=== PATIENT | female | born 1985 | race Caucasian/White ===

== ENCOUNTER 2016-09-02 17:22 | Emergency (ER) | payer BC ==
[~2016-09-02] VITALS: Wt 71.0 kg
[~2016-09-02 17:22] MED LIST: ACET500C5 PO; CETI10CA PO; CYCL-319 PO; DICY20TA59 PO; HYDR-906 PO; IBUP400T22 PO; NAPR-260 PO; NITR-58 PO; ONDA4TAB14 PO; UDROBDM PO
[2016-09-02] MEDS ORDERED: ONDANSETRON 4 MG INJ IV STA (17:45)
[2016-09-02] MEDS ORDERED: SOD CHLORIDE 0.9% 1,000 ML IV STA (17:45)
[2016-09-02 18:17] LABS: BASOPHIL # 0.1 10^3/ul (0.0-0.1); BASOPHILS % 0.6 % (0.0-2.0); EOSINOPHILS # 0.2 10^3/ul (0.0-0.5); EOSINOPHILS % 1.8 % (0.0-7.0); HEMOGLOBIN 13.8 g/dl (12.0-16.0); LYMPHOCYTES # 2.2 10^3/ul (0.8-2.9); LYMPHOCYTES % 21.3 % (15.0-51.0); MEAN CORPUSCULAR HEMOGLOBIN 28.9 pg (29.0-33.0); MEAN CORPUSCULAR HGB CONC 34.5 g/dl (32.0-37.0); MEAN CORPUSCULAR VOLUME 83.9 fl (82.0-101.0); MEAN PLATELET VOLUME 11.5 fl (7.4-10.4); MONOCYTE # 0.8 10^3/ul (0.3-0.9); MONOCYTES % 7.4 % (0.0-11.0); NEUTROPHILS % 68.5 % (39.0-77.0); PLATELET COUNT 186 10^3/UL (140-415); RED BLOOD COUNT 4.77 10^6/ul (4.20-5.40); RED CELL DISTRIBUTION WIDTH 13.6 % (11.5-14.5); WHITE BLOOD COUNT 10.2 10^3/ul (4.8-10.8)
[2016-09-02 18:37] LABS: ADD UMIC YES; UR ASCORBIC ACID 20 mg/dL (NEGATIVE); UR BACTERIA FEW /HPF (NONE SEEN); UR BILIRUBIN (Dip) NEGATIVE (NEGATIVE); UR BLOOD (Dip) NEGATIVE (NEGATIVE); UR CLARITY CLOUDY (CLEAR); UR COLOR YELLOW (YELLOW); UR GLUCOSE (Dip) NEGATIVE (NEGATIVE); UR KETONES (Dip) NEGATIVE (NEGATIVE); UR LEUKOCYTE ESTERASE (Dip) 3+ Leu/ul (NEGATIVE); UR MUCUS FEW /HPF (NONE SEEN); UR NITRITE (Dip) NEGATIVE (NEGATIVE); UR RBC 1 /HPF (0-5); UR SPECIFIC GRAVITY (Dip) 1.017 (1.003-1.030); UR SQUAMOUS EPITHELIAL CELL FEW /HPF (FEW); UR TOTAL PROTEIN (Dip) NEGATIVE (NEGATIVE); UR UROBILINOGEN (Dip) NEGATIVE (NEGATIVE)
[2016-09-02 18:38] LABS: ALBUMIN 4.2 g/dl (3.3-4.9); ALBUMIN/GLOBULIN RATIO 1.27; BILIRUBIN,INDIRECT 0.2 mg/dl (0-1.1); BILIRUBIN,TOTAL 0.2 mg/dl (0.2-1.3); CREATININE 0.66 mg/dl (0.44-1.00); TOTAL PROTEIN 7.5 g/dl (6.1-8.1)
--- NOTE | 2016-09-02 18:43 | RADRPT ---
PROCEDURE: US OB. CLINICAL INDICATION: Pelvic pain TECHNIQUE: Transabdominal and endovaginal views of the pelvis are available for review. COMPARISON: No prior studies are available for comparison. FINDINGS: There is a single intrauterine gestation with the crown-rump length measuring 1.3 cm, corresponding to a gestational age of 7 weeks and 4 days. The heart rate is noted at 142 bpm. The right ovary measures 3.8 x 2.7 x 2.8 cm. There is a 2.4 cm simple cyst in the right ovary. Ther e is Doppler flow in the right ovary. The left ovary was not visualized. There is no free fluid. RPTAT: AA IMPRESSION: Single live intrauterine with an estimated gestational age of 7 weeks and 4 days, based on ultrasound measurements. CITLALLI based on ultrasound measurements is 04/17/2017. Left ovary not visualized. .Blaise Crews MD, Date Time Electronically viewed and signed by .Blaise Crews MD, on 09/02/2016 18:43 .S/
[2016-09-02] MEDS ORDERED: NITROFURANTOIN (SR) 100 MG CAP PO ONE (19:00)
[2016-09-02] MEDS ORDERED: NITR-58 PO (19:08)
[2016-09-02] MEDS ORDERED: ONDA4TAB14 PO (19:08)
[2016-09-02] MEDS ORDERED: PRENAT PO (19:12)
[2016-09-02 19:36] VITALS: BP 109/67; PULSE 53; RESP 14; TEMP 97.7
--- NOTE | 2016-09-09 14:22 | ERD ---
ER Documentation Chief Complaint Date/Time DATE: 09/09/16 TIME: 14:20 Chief Complaint NAUSEA AND VOMITING 6 WEEKS HPI Patient is a 31-year-old female who is who presents with nausea and vomiting. She has had nausea and vomiting for the past few days. She has not had any treatment as of yet. She is . She has had no abdominal pain or vaginal bleeding. She has no fevers. ROS All systems reviewed and are negative except as per history of present illness. Medications Home Meds Active Scripts Multivit/Min/Fol Ac/Iron/Pren* ( S*) 1 Tab Tab, 1 TAB PO DAILY, #30 TAB Prov:IVÁN MARQUES MD 09/02/16 Ondansetron (Ondansetron Odt) 4 Mg Tab.rapdis, 4 MG PO Q6H Y for NAUSEA AND/OR VOMITING, #30 TAB Prov:IVÁN MARQUES MD 09/02/16 Nitrofurantoin Monohyd Macrocr* (Macrobid*) 100 Mg Capsr, 100 MG PO BID for 14 Days, CAP Prov:IVÁN MARQUES MD 09/02/16 Cetirizine Hcl* (Zyrtec*) 10 Mg Capsule, 10 MG PO DAILY, #10 TAB.CHEW Prov:JESSIKA ECHEVERRIA PA-C 02/05/16 Guaifenesin-Dextromethorphan* (Robitussin* DM) 100MG/10MG/5ML Syrup, 10 ML PO Q4H Y for COUGH for 5 Days, ML Prov:JESSIKA ECHEVERRIA PA-C 02/05/16 Acetaminophen* (Tylophen*) 500 Mg Capsule, 1 CAP PO Q6H Y for PAIN AND OR ELEVATED TEMP, #30 CAP Prov:JESSIKA ECHEVERRIA PA-C 02/05/16 Naproxen* (Naprosyn*) 500 Mg Tablet, 500 MG PO BID Y for PAIN AND/OR INFLAMMATION, #30 TAB Prov:JESSIKA ECHEVERRIA PA-C 02/05/16 Ondansetron (Ondansetron Odt) 4 Mg Tab.rapdis, 4 MG PO Q8 Y for NAUSEA AND/OR VOMITING, #30 TAB Prov:MARIANNE STEVENS NP 01/14/16 Dicyclomine Hcl* (Bentyl*) 20 Mg Tablet, 20 MG PO QID, #20 TAB Prov:MARIANNE STEVENS SPARK PLUG TESTER 01/14/16 Hydrocodone/Acetaminophen ([place] 5-325 Tablet) 1 Each Tablet, 1 TAB PO Q6H Y for SEVERE PAIN LEVEL 7-10, #20 TAB Prov:MARIANNE STEVENS SPARK PLUG TESTER 01/14/16 Ibuprofen* (Motrin*) 400 Mg Tab, 400 MG PO Q6H Y for PAIN AND OR ELEVATED TEMP, #30 TAB Prov:MARIANNE STEVENS. SPARK PLUG TESTER 11/08/15 Cyclobenzaprine Hcl* (Cyclobenzaprine Hcl*) 10 Mg Tablet, 10 MG PO TID, #15 TAB Prov:MARIANNE STEVENS SPARK PLUG TESTER 11/08/15 Hydrocodone/Acetaminophen ([place] 5-325 Tablet) 1 Each Tablet, 1 TAB PO Q6H Y for PAIN, #20 TAB Prov:MARIANNE STEVENS NP 11/08/15 Naproxen* (Naprosyn*) 500 Mg Tablet, 500 MG PO BID Y for PAIN AND/OR INFLAMMATION, #30 TAB Prov:CHANTEL URBINA PA-C 09/23/15 Acetaminophen* (Tylophen*) 500 Mg Capsule, 1 CAP PO Q6H Y for PAIN AND OR ELEVATED TEMP, #20 CAP Prov:PHILIP ALLEN NP 09/08/14 Nitrofurantoin Monohyd Macrocr* (Macrobid*) 100 Mg Capsr, 100 MG PO BID for 7 Days, CAP Prov:PHILIP ALLEN SPARK PLUG TESTER 09/08/14 Allergies Allergies: Coded Allergies: No Known Allergy (Unverified , 05/11/14) PMhx/Soc Medical and Surgical Hx: pt denies Medical Hx History of Surgery: No Anesthesia Reaction: No Hx Neurological Disorder: No Hx Respiratory Disorders: No Hx Cardiac Disorders: No Hx Psychiatric Problems: No Hx Miscellaneous Medical Probl: No Hx Alcohol Use: No Hx Substance Use: No Hx Tobacco Use: No Smoking Status: Never smoker FmHx Family History: No diabetes Physical Exam Physical Exam Const: No acute distress Head: Atraumatic Eyes: Normal Conjunctiva ENT: Normal External Ears, Nose and Mouth. Neck: Full range of motion..~ No meningismus. Resp: Clear to auscultation bilaterally Cardio: Regular rate and rhythm, no murmurs Abd: Soft, non tender, non distended. Normal bowel sounds Skin: No petechiae or rashes Back: No midline or flank tenderness Ext: No cyanosis, or edema Neur: Awake and alert Psych: Normal Mood and Affect Results 24 hrs Laboratory Tests Test 09/02/16 18:05 White Blood Count 10.210^3/ul Red Blood Count 4.7710^6/ul Hemoglobin 13.8g/dl Hematocrit 40.0% Mean Corpuscular Volume 83.9fl Mean Corpuscular Hemoglobin 28.9pg Mean Corpuscular Hemoglobin Concent 34.5g/dl Red Cell Distribution Width 13.6% Platelet Count 49857^3/UL Mean Platelet Volume 11.5fl Neutrophils % 68.5% Lymphocytes % 21.3% Monocytes % 7.4% Eosinophils % 1.8% Basophils % 0.6% Nucleated Red Blood Cells % 0.0/100WBC Neutrophils # 7.010^3/ul Lymphocytes # 2.210^3/ul Monocytes # 0.810^3/ul Eosinophils # 0.210^3/ul Basophils # 0.110^3/ul Nucleated Red Blood Cells # 0.010^3/ul Urine Color YELLOW Urine Clarity CLOUDY Urine pH 6.0 Urine Specific [place] 1.017 Urine Ketones NEGATIVEmg/dL Urine Nitrite NEGATIVEmg/dL Urine Bilirubin NEGATIVEmg/dL Urine Urobilinogen NEGATIVEmg/dL Urine Leukocyte Esterase 3+Che/ul Urine Microscopic RBC 1/HPF Urine Microscopic WBC 7/HPF Urine Squamous Epithelial Cells FEW/HPF Urine Bacteria FEW/HPF Urine Mucus FEW/HPF Urine Hemoglobin NEGATIVEmg/dL Urine Glucose NEGATIVEmg/dL Urine Total Protein NEGATIVEmg/dl Sodium Level 139mmol/L Potassium Level 4.0mmol/L Chloride Level 101mmol/L Carbon Dioxide Level 25mmol/L Anion Gap 17 Blood Urea Nitrogen 7mg/dl Creatinine 0.66mg/dl Glucose Level 111mg/dl Calcium Level 9.0mg/dl Total Bilirubin 0.2mg/dl Direct Bilirubin 0.00mg/dl Indirect Bilirubin 0.2mg/dl Aspartate Amino Transf (AST/SGOT) 21IU/L Alanine Aminotransferase (ALT/SGPT) 40IU/L Alkaline Phosphatase 102IU/L Total Protein 7.5g/dl Albumin 4.2g/dl Globulin 3.30g/dl Albumin/Globulin Ratio 1.27 Lipase 61U/L Beta HCG, Quantitative 38716.0mIU/ml Current Medications Medications (Trade) Dose Ordered Sig/Warren Route PRN Reason Start Time Stop Time Status Last Admin Dose Admin Sodium Chloride (NS) 1,000 ml @ 1,000 mls/hr Q1H STAT IV 09/02/16 17:45 09/02/16 18:44 DC 09/02/16 18:58 Ondansetron HCl (Zofran Inj) 4 mg ONCE STAT IV 09/02/16 17:45 09/02/16 17:47 DC 09/02/16 18:58 Nitrofurantoin Macrocrystals (Macrobid) 100 mg ONCE ONCE PO 09/02/16 19:00 09/02/16 19:01 DC 09/02/16 19:05 Procedures/MDM PROCEDURE: US OB. CLINICAL INDICATION: Pelvic pain TECHNIQUE: Transabdominal and endovaginal views of the pelvis are available for review. COMPARISON: No prior studies are available for comparison. FINDINGS: There is a single intrauterine gestation with the crown-rump length measuring 1.3 cm, corresponding to a gestational age of 7 weeks and 4 days. The heart rate is noted at 142 bpm. The right ovary measures 3.8 x 2.7 x 2.8 cm. There is a 2.4 cm simple cyst in the right ovary. There is Doppler flow in the right ovary. The left ovary was not visualized. There is no free fluid. RPTAT: AA IMPRESSION: Single live intrauterine with an estimated gestational age of 7 weeks and 4 days, based on ultrasound measurements. CITLALLI based on ultrasound measurements is 04/17/2017. Left ovary not visualized. .Blaise Crews MD, MD Date Time Electronically viewed and signed by .Blaise Crews MD, on 09/02/2016 18: 43 Patient is a 31-year-old female with who presents with hyperemesis gravidarum. I do not believe that she requires admission the hospital at this time. She was given fluids and Zofran and feels better. Laboratory studies are basically normal. Urinalysis shows acute infection and I will treat her with Macrobid. She is at 7 weeks. I doubt ectopic . She can return for any worsening symptoms. She should follow-up with her OB doctor within 24-48 hours. Departure Diagnosis: Primary Impression: Hyperemesis gravidarum Additional Impressions: Nausea and vomiting Vomiting type: unspecified Vomiting Intractability: non-intractable Qualified Code: R11.2 - Non-intractable vomiting with nausea, unspecified vomiting type Cystitis Condition: Fair Patient Instructions: Cystitis, Hyperemesis Gravidarum Additional Instructions: Call your primary care doctor TOMORROW for an appointment during the next 1-2 days.See the doctor sooner or return here if your condition worsens before your appointment time. VIÁN MARQUES MD Sep 09, 2016 14:22
[2016-09-14] MEDS ORDERED: ALBU18HF INHALATION (00:40)
== END 2016-09-02 20:26 | disposition home or self-care (01) ==
LOC: FTE 17:22
DX: O21.0 Mild hyperemesis gravidarum (principal); O23.11 Infections of bladder in pregnancy, first trimester; R10.2 Pelvic and perineal pain; Z3A.01 Less than 8 weeks gestation of pregnancy
CPT/HCPCS: 36415; 76801; 76817; 80053; 81001; 83690; 84702; 85025; 86900; 86901; 96374; 99285; J2405; J7030; Z7610

== ENCOUNTER 2017-02-16 19:24 | Outpatient (CLI) | END 2017-02-17 00:20 | disposition home or self-care (01) ==

== ENCOUNTER 2017-02-19 15:48 | Emergency (ER) | END 2017-02-19 16:41 | disposition home or self-care (01) ==

== ENCOUNTER 2018-03-04 10:48 | Emergency (ER) | payer BC ==
[~2018-03-04] VITALS: Ht 167.6 cm; Wt 90.8 kg
[~2018-03-04 10:48] MED LIST changes: -ACET500C5 PO; +AMOX1TAB9 PO; +AMOX250C PO; -CETI10CA PO; -CYCL-319 PO; -DICY20TA59 PO; +GUAI-173 PO; -HYDR-906 PO; -IBUP400T22 PO; -NAPR-260 PO; -NITR-58 PO; +SODI104S2 NASAL; -UDROBDM PO
[2018-03-04 10:51] VITALS: BP 138/75; PULSE 72; RESP 20; Ht 167.6 cm; Wt 90.8 kg
--- NOTE | 2018-03-04 13:15 | ERD ---
ER Documentation Chief Complaint Chief Complaint Complains of bilateral hand pain x 3 weeks HPI 33-year-old female presents for bilateral hand pain times 3 weeks and also complaint of right vaginal discharge and vaginal lesion. She was try to see her primary care physician however she states that she can get an appointment. She states that the pain is between her thumb and first digit. Pain is noted to be 5 out of 10. 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 Denies any trauma. Regarding the vaginal discharge she states that it is white and smelly, been going on for about a few days. Regarding the vaginal lesion she does not no evidence of wart. She denies any itchiness or pain in the area. She states that she has just some irritation. Denies chest pain or shortness of breath. Denies abdominal pain, nausea, vomiting. ROS All systems reviewed and are negative except as per history of present illness. Medications Home Meds Active Scripts Guaifenesin* (Tussin*) 100 Mg/5 Ml Syrup, 100 MG PO Q6 PRN for COUGH for 5 Days, ML Prov:LEIGHTON TROY 02/19/17 Sodium Chloride ([place]) 104 Ml [place], 1 SPRAY NASAL PRN PRN for NASAL CONGESTION, #1 BOTTLE Prov:LEIGHTON TROY 02/19/17 Amoxicillin/Potassium Clav (Amox-Clav 500-125 mg Tablet) 500-125 mg Tab, 1 TAB PO BID for 7 Days, TAB Prov:LEIGHTON TROY 02/19/17 Ondansetron (Ondansetron Odt) 4 Mg Tab.rapdis, 4 MG PO Q8 PRN for NAUSEA AND/OR VOMITING, #30 TAB Prov:MARIANNE STEVENS NP 01/14/16 Reported Medications Amoxicillin* (Amoxicillin*) 250 Mg Cap, 250 MG PO Q8, #30 CAP 02/16/17 Allergies Allergies: Coded Allergies: No Known Allergy (Unverified , 05/11/14) PMhx/Soc History of Surgery: No Anesthesia Reaction: No Hx Neurological Disorder: No Hx Respiratory Disorders: No Hx Cardiac Disorders: No Hx Psychiatric Problems: No Hx Miscellaneous Medical Probl: No Hx Alcohol Use: No Hx Substance Use: No Hx Tobacco Use: No Smoking Status: Never smoker Physical Exam Vitals Vital Signs Date Temp Pulse Resp B/P (MAP) Pulse Ox O2 O2 Flow FiO2 Time Delivery Rate 03/04/18 98.0 72 20 138/75 96 10:51 (96) Physical Exam Const: No acute distress Resp: Clear to auscultation bilaterally Cardio: Regular rate and rhythm, no murmurs, bilateral radial pulses intact Abd: Soft, non tender, non distended. Normal bowel sounds Skin: No petechiae or rashes Back: No midline or flank tenderness Ext: Bilateral hand tenderness to palpation over the thumb and index finger, range of motion is normal. 5 out of 5 bilateral hand hooker inspector strength. Negative Phalen's or reverse Phalen's test, no Tinel sign. Neur: Awake and alert, bilateral hand sensation intact Psych: Normal Mood and Affect Vaginal exam: Done with nursing staff at bedside, there was a skin tag on the left vaginal wall, no signs of infection, white vaginal discharge noted Results 24 hrs Current Medications Medications Dose Sig/Warren Start Time Status Last (Trade) Ordered Route PRN Stop Time Admin Dose Reason Admin Fluconazole 150 mg ONCE ONCE 03/04/18 (Diflucan) PO 13:30 03/04/18 13:31 Procedures/MDM Medical Decision Making: Differential diagnosis includes but not limited to muscle strain, ligamentous sprain, carpal tunnel syndrome, fracture, dislocation Patient appeared well on physical exam. There was mild to moderate tenderness over the bilateral hands between the first and second digit webspace. Bilateral hand x-ray was unremarkable. Patient likely has muscle strain or ligamentous sprain. Patient advised regarding rest and [id number] pain medications for pain. Patient advised regarding use of hand brace. Vaginal examination showed a right-sided skin tag. Patient advised regarding watchful waiting. Advise follow with primary care physician if she gets irritation. The patient's vaginal discharge is most likely a candidal infection, patient given 1 dose of Diflucan in the ER. Patient advised to follow up with PCP in 1-2 days. Patient advised to return to ED for new or worsening symptoms. Patient stable on discharge from the ED. Disclaimer: Inadvertent spelling and grammatical errors are likely due to EHR/dictation software use and do not reflect on the overall quality of patient care. Also, please note that the electronic time recorded on this note does not necessarily reflect the actual time of the patient encounter. Departure Diagnosis: Primary Impression: Pain of hand Laterality: bilateral Qualified Codes: M79.641 - Pain in right hand; M79.642 - Pain in left hand Additional Impressions: Vaginal candidiasis Skin tag Condition: Fair Patient Instructions: Sprain Hand Referrals: [facility] YOU HAVE RECEIVED A MEDICAL SCREENING EXAM AND THE RESULTS INDICATE THAT YOU DO NOT HAVE A CONDITION THAT REQUIRES URGENT TREATMENT IN THE EMERGENCY DEPARTMENT. FURTHER EVALUATION AND TREATMENT OF YOUR CONDITION CAN WAIT UNTIL YOU ARE SEEN IN YOUR DOCTORS OFFICE WITHIN THE NEXT 1-2 DAYS. IT IS YOUR RESPONSIBILITY TO MAKE AN APPOINTMENT FOR FOLOW-UP CARE. IF YOU HAVE A PRIMARY DOCTOR --you should call your primary doctor and schedule an appointment IF YOU DO NOT HAVE A PRIMARY DOCTOR YOU CAN CALL OUR PHYSICIAN REFERRAL HOTLINE AT IF YOU CAN NOT AFFORD TO SEE A PHYSICIAN YOU CAN CHOSE FROM THE FOLLOWING [facility] [address] [facility]. [facility] [address] [facility] [facility] [address] [facility] [address] [facility] [address] [facility]. [facility]. [address] Additional Instructions: Call your primary care doctor TOMORROW for an appointment during the next 1-2 days.See the doctor sooner or return here if your condition worsens before your appointment time. ALEJANDRO MENDIETA DO Mar 04, 2018 13:15
[2018-03-04] MEDS ORDERED: FLUCONAZOLE 150 MG TAB PO ONE (13:30)
== END 2018-03-04 13:22 | disposition home or self-care (01) ==
LOC: FTE 10:48
DX: M79.641 Pain in right hand (principal); M79.642 Pain in left hand; B37.3 Candidiasis of vulva and vagina; K64.4 Residual hemorrhoidal skin tags
CPT/HCPCS: 73130; 99284; Z7610

== ENCOUNTER 2018-05-29 18:30 | Emergency (ER) | payer BC ==
[~2018-05-29] VITALS: Ht 162.6 cm; Wt 96.3 kg
[2018-05-29 18:35] VITALS: Ht 162.6 cm; Wt 96.3 kg
--- NOTE | 2018-05-29 20:55 | ERD ---
ER Documentation Chief Complaint Chief Complaint pt here to get checked for STD's has breakout in pelvic area HPI This is a 33-year-old female patient who presents to the emergency room with concern of being although she has irregular periods so she is not sure how far along she is. She took a [employer] test that was positive. She is concerned that she may have genital herpes or genital warts and would like to have STD testing. ROS All systems reviewed and are negative except as per history of present illness. Medications Home Meds Active Scripts Mupirocin (Mupirocin) 1 Gm Oin.pf.kerline, 1 GM TP DAILY for 10 Days, #15 G Prov:NANCY TINOCO NP 05/29/18 Imiquimod (Imiquimod) 5% Cream.pack, 1 PACKET TOP qbed for warts for 120 Days, #120 G Prov:NANCY TINOCO NP 05/29/18 Guaifenesin* (Tussin*) 100 Mg/5 Ml Syrup, 100 MG PO Q6 PRN for COUGH for 5 Days, ML Prov:LEIGHTON TROY 02/19/17 Sodium Chloride ([place]) 104 Ml [place], 1 SPRAY NASAL PRN PRN for NASAL CONGESTION, #1 BOTTLE Prov:LEIGHTON TROY 02/19/17 Amoxicillin/Potassium Clav (Amox-Clav 500-125 mg Tablet) 500-125 mg Tab, 1 TAB PO BID for 7 Days, TAB Prov:LEIGHTON TROY 02/19/17 Ondansetron (Ondansetron Odt) 4 Mg Tab.rapdis, 4 MG PO Q8 PRN for NAUSEA AND/OR VOMITING, #30 TAB Prov:MARIANNE STEVENS NP 01/14/16 Reported Medications Amoxicillin* (Amoxicillin*) 250 Mg Cap, 250 MG PO Q8, #30 CAP 02/16/17 Allergies Allergies: Coded Allergies: No Known Allergy (Unverified , 05/11/14) PMhx/Soc Medical and Surgical Hx: pt denies Medical Hx, pt denies Surgical Hx History of Surgery: No Anesthesia Reaction: No Hx Neurological Disorder: No Hx Respiratory Disorders: No Hx Cardiac Disorders: No Hx Psychiatric Problems: No Hx Miscellaneous Medical Probl: No Hx Alcohol Use: No Hx Substance Use: No Hx Tobacco Use: No Smoking Status: Never smoker FmHx Family History: No diabetes, No coronary disease, No other Physical Exam Vitals Vital Signs Date Temp Pulse Resp B/P (MAP) Pulse Ox O2 O2 Flow FiO2 Time Delivery Rate 05/29/18 98.3 62 16 135/87 97 Room Air 23:35 (103) 05/29/18 98.2 95 18 140/87 97 18:35 (104) Physical Exam Const: No acute distress Head: Atraumatic Eyes: Normal Conjunctiva ENT: Normal External Ears, Nose and Mouth. Neck: Full range of motion. No meningismus. Resp: Clear to auscultation bilaterally Cardio: Regular rate and rhythm, no murmurs Abd: Soft, non tender, non distended. Normal bowel sounds Skin: No petechiae or rashes Back: No midline or flank tenderness Ext: No cyanosis, or edema Genitals: multiple scattered small condyloma in perineum and on thighs, nonfluctuant, no erythema, single stock Neur: Awake and alert Psych: Normal Mood and Affect Results 24 hrs Laboratory Tests Test 05/29/18 20:53 05/29/18 20:54 Beta HCG, Quantitative 01551.0 mIU/ml Serum HCG, Qualitative POSITIVE Procedures/MDM This is a 33-year-old female patient who presents to the emergency room with concern concern of and possible STD infection. ED COURSE: The patient was stable throughout ED course. MDM: Patient was provided with laboratory results that include quantitative beta hCG result. Patient instructed to start taking multivitamin, increase hydration, follow-up with OB as soon as possible. Instructed on medications for warts and need for follow-up. Urine sent for chlamydia/ gonorrhea screening. Patient was alert and well-appearing at time of discharge, patient is not complaining of any related complaints such as vaginal bleeding, vaginal cramping. Lesions to patient's perineum indicate a condyloma infection however patient was instructed that for definitive diagnosis she must see her primary care provider. There is no indication at this time of cellulitis, fulminant infection, fourniers gangrene, or communicable disease. DISPOSITION: The patient has been discharge home to follow-up with community physician. Departure Diagnosis: Primary Impression: Condyloma acuminata Condition: Stable Patient Instructions: Genital Warts (Condyloma) Referrals: [facility] REFERRAL LIST Additional Instructions: Thank you very much for allowing us to participate in your care. Your health and safety is our top priority at [facility]. Call your primary care doctor TOMORROW for an appointment during the next 2-4 days and bring all the information and medications prescribed. Have prescriptions filled and follow precisely the directions on the label. If the symptoms get worse and your provider is unavailable, return to the Emergency Department immediately. NANCY TINOCO NP May 29, 2018 20:55
[2018-05-29] MEDS ORDERED: IMIQ1CRE14 TOP (20:58)
[2018-05-29] MEDS ORDERED: MUPI1OIN6 TP (20:58)
[2018-05-29 23:35] VITALS: BP 135/87; PULSE 62; RESP 16
== END 2018-05-29 23:37 | disposition home or self-care (01) ==
LOC: FTE 18:30
DX: O26.891 Other specified pregnancy related conditions, first trimester (principal); A63.0 Anogenital (venereal) warts; Z3A.00 Weeks of gestation of pregnancy not specified
CPT/HCPCS: 84702; 84703; 87591; 99283